=== PATIENT | male | born 1945 | race Caucasian/White ===

== ENCOUNTER 2017-11-27 09:59 | Inpatient (IN) | payer MEDICARE, BC ==
[2017-11-27] MEDS: GABAPENTIN 300 MG CAP PO ×2 (11:15→20:58)
[2017-11-27] MEDS: traMADol 50 MG TAB PO (11:16)
[2017-11-27] MEDS: DEXAMETHASONE 1 MG TAB PO (11:16)
[2017-11-27] MEDS ORDERED: GLYCOPYRROLATE 0.4 MG INJ (11:41)
[2017-11-27] MEDS ORDERED: ROCURONIUM 50 MG INJ (11:41)
[2017-11-27] MEDS ORDERED: CEFAZOLIN 1 GM INJ (11:41)
[2017-11-27] MEDS ORDERED: FENTAnyl 50 MCG/ML VIAL (11:41)
[2017-11-27] MEDS ORDERED: PROPOFOL 20 ML (11:41)
[2017-11-27] MEDS ORDERED: NEOSTIGMINE 3 MG/3 ML SYRINGE (11:41)
[2017-11-27] MEDS ORDERED: MIDAZOLAM 1 MG/ML 2 ML INJ (11:41)
[2017-11-27] MEDS ORDERED: ONDANSETRON 4 MG INJ (11:41)
[2017-11-27] MEDS ORDERED: ROPIVACAINE 0.5 % 30 ML VIAL (11:42)
[2017-11-27] MEDS ORDERED: DEXAMETHASONE 4 MG/ML 1 ML INJ (11:42)
[2017-11-27] MEDS: TRANEXAMIC ACID 1,000 MG in DEXTROSE 5% 100 ML IVPB (12:00)
[2017-11-27] MEDS ORDERED: BUPIVACAINE 0.5% (SDV) 30 ML, morphine SULFATE (PF) 8 MG, EPINEPHrine 0.3 MG, KETOROLAC... IRR (12:00)
[2017-11-27] MEDS ORDERED: CEFAZOLIN 2 GM/50 ML (PMX) 50 ML IVPB (12:00)
[2017-11-27] MEDS ORDERED: THROMBIN 5000 UNIT VIAL (12:40)
[2017-11-27] MEDS ORDERED: EPHEDrine SULFATE 50 MG/5 ML SYG IV (13:00)
[2017-11-27] MEDS ORDERED: MIDAZOLAM 1 MG/ML 2 ML INJ IV (13:00)
[2017-11-27] MEDS ORDERED: TRIMETHOBENZAMIDE 100 MG/ML VIAL IM (13:00)
[2017-11-27] MEDS ORDERED: IPRATROPIUM (NEB) 0.5 MG/2.5 ML AMP HHN (13:00)
[2017-11-27] MEDS ORDERED: FENTAnyl 50 MCG/ML VIAL IV ×3 (13:00)
[2017-11-27] MEDS ORDERED: HYDROmorphONE (0.2 MG/ML) 10ML SYG IV ×2 (13:00)
[2017-11-27] MEDS ORDERED: ONDANSETRON 4 MG INJ IV ×2 (13:00→15:30)
[2017-11-27] MEDS ORDERED: LABETALOL HCL 20MG INJ IV (13:00)
[2017-11-27] MEDS ORDERED: ALBUTEROL 0.083% (NEB) 2.5 MG/3 ML AMP HHN (13:00)
[2017-11-27] MEDS: LIDOCAINE 1%/EPI 30 ML INJ (14:15)
[2017-11-27] MEDS: POLYMYXIN/BACITRACIN 1L IRRIG (14:16)
[2017-11-27] MEDS: DIPHENHYDRAMINE 50 MG INJ IV (15:27)
[2017-11-27] MEDS: HYDROmorphONE (0.2 MG/ML) 10ML SYG IV ×3 (15:27→16:44)
[2017-11-27] MEDS ORDERED: MAGNESIUM HYDROXIDE 30ML CUP PO (15:30)
[2017-11-27] MEDS ORDERED: DIPHENHYDRAMINE 50 MG INJ IV (15:30)
[2017-11-27] MEDS ORDERED: ACETAMINOPHEN 500 MG TAB PO (15:30)
[2017-11-27] MEDS ORDERED: ZOLPIDEM 5 MG TAB PO (15:30)
[2017-11-27] MEDS ORDERED: NON-FORMULARY/PATIENT OWN MED (Temazepam* 30 MG) PO (15:30)
[2017-11-27] MEDS ORDERED: CEFAZOLIN 1 GM/50 ML (PMX) 50 ML IVPB (15:30)
[2017-11-27] MEDS ORDERED: morphine 2 MG INJ IV (15:30)
[2017-11-27] MEDS ORDERED: OXYCODONE/ACETAMINOPHEN (5/325) TAB PO (15:30)
[2017-11-27] MEDS: OXYCODONE/ACETAMINOPHEN (5/325) TAB PO ×2 (16:24→20:57)
[2017-11-27] MEDS: TRANEXAMIC ACID 1,000 MG in DEXTROSE 5% 100 ML IV (16:25)
[2017-11-27] MEDS: hydrALAzine 20 MG INJ IV (16:36)
[2017-11-27] MEDS: morphine 2 MG INJ IV ×2 (18:03→22:16)
[2017-11-27] MEDS: DEXAMETHASONE 2 MG TAB PO (18:03)
[2017-11-27] MEDS: KETOROLAC 15 MG INJ IV (19:46)
[2017-11-27] MEDS: SENNA/DOCUSATE NA (8.6MG/50MG) TAB PO (20:58)
[2017-11-27] MEDS: traZODone 50 MG TAB PO (20:58)
[2017-11-28] MEDS: CEFAZOLIN 1 GM/50 ML (PMX) 50 ML IVPB ×2 (00:11→06:36)
[2017-11-28] MEDS: DEXAMETHASONE 2 MG TAB PO ×2 (00:12→05:30)
[2017-11-28] MEDS ORDERED: VITAMIN A & D 5 GM OINT PACKET TOP (00:43)
[2017-11-28] MEDS: OXYCODONE/ACETAMINOPHEN (5/325) TAB PO ×4 (01:47→11:39)
[2017-11-28] MEDS: morphine 2 MG INJ IV ×3 (02:31→10:19)
[2017-11-28] MEDS ORDERED: NON-FORMULARY/PATIENT OWN MED (Varenicline Tartrate (Chantix) 1 MG) PO (09:00)
[2017-11-28] MEDS: ASPIRIN 81 MG TAB PO (09:27)
[2017-11-28] MEDS: SENNA/DOCUSATE NA (8.6MG/50MG) TAB PO (09:27)
== END 2017-11-28 11:46 | disposition home or self-care (01) | DRG 483 ==
LOC: REC 09:59 → MS1 17:25
PROC: 0RRJ00Z Replacement of Right Shoulder Joint with Reverse Ball and Socket Synthetic Substitute, Open Approach (ICD-10-PCS; principal; 2017-11-27 12:00)
PROC: 0LS30ZZ Reposition Right Upper Arm Tendon, Open Approach (ICD-10-PCS; 2017-11-27 12:00)
PROC: 0PB90ZZ Excision of Right Clavicle, Open Approach (ICD-10-PCS; 2017-11-27 12:00)
DX: M19.211 Secondary osteoarthritis, right shoulder (principal); M75.101 Unspecified rotator cuff tear or rupture of right shoulder, not specified as traumatic; S46.211A Strain of muscle, fascia and tendon of other parts of biceps, right arm, initial encounter
CPT/HCPCS: 73030-RT; 86999; 88304; 88311; 93005; 97165